=== PATIENT | female | born 2000 | race Caucasian/White ===

== ENCOUNTER 2020-08-08 15:39 | Outpatient (REF) | payer OTHER, MEDICAID, SELFPAY ==
[2020-08-09 12:33] LABS: Influenza A PCR NEGATIVE (Negative); Influenza B PCR NEGATIVE (Negative); Resp Syncy Virus RNA Qual PCR NEGATIVE (Negative); SARS COV2 PCR INHOUSE NEGATIVE (Negative)
== END 2020-08-08 15:40 | disposition home or self-care (01) ==
LOC: HO.LAB 15:39
PROVIDERS: Visit Provider Nurse Practitioner Family
DX: R05 Cough (principal)
CPT/HCPCS: 0241U; 36415

== ENCOUNTER 2020-12-24 12:17 | Outpatient (REF) | payer OTHER, MEDICAID, SELFPAY | END 2020-12-24 12:18 | disposition home or self-care (01) | LOC: HO.HMGCLDS 12:17 | PROVIDERS: Visit Provider Internal Medicine | DX: Z20.822 Contact with and (suspected) exposure to COVID-19 (principal) | CPT/HCPCS: C9803; U0003; U0005 ==